=== PATIENT | male | born 1940 | race Caucasian/White ===

== ENCOUNTER 2017-06-04 00:07 | Inpatient (IN) | payer MEDICARE, OTHER ==
[2017-06-04 01:15] LABS: ADD MAN DIFF? NO
[2017-06-04 01:16] LABS: WHITE BLOOD COUNT 15.7 10^3/ul (4.8-10.8)
[2017-06-04 01:16] LABS: BASOPHILS % 0.2 % (0.0-2.0); EOSINOPHILS % 0.1 % (0.0-7.0); HEMATOCRIT 37.7 % (42.0-52.0); HEMOGLOBIN 12.3 g/dl (14.0-18.0); LYMPHOCYTES # 1.7 10^3/ul (0.8-2.9); LYMPHOCYTES % 10.5 % (15.0-51.0); MEAN CORPUSCULAR HEMOGLOBIN 29.4 pg (29.0-33.0); MEAN CORPUSCULAR HGB CONC 32.6 g/dl (32.0-37.0); MEAN CORPUSCULAR VOLUME 90.2 fl (82.0-101.0); MEAN PLATELET VOLUME 10.5 fl (7.4-10.4); MONOCYTE # 1.2 10^3/ul (0.3-0.9); MONOCYTES % 7.4 % (0.0-11.0); NEUTROPHIL # 12.7 10^3/ul (1.6-7.5); NEUTROPHILS % 81.4 % (39.0-77.0); PLATELET COUNT 235 10^3/UL (140-415); RED BLOOD COUNT 4.18 10^6/ul (4.70-6.10)
[2017-06-04 01:28] LABS: LACTIC ACID 1.6 mmol/L (0.5-2.0)
[2017-06-04 01:33] LABS: ALANINE AMINOTRANSFERASE 19 IU/L (13-69); ALBUMIN 4.4 g/dl (3.3-4.9); ALBUMIN/GLOBULIN RATIO 1.46; ALKALINE PHOSPHATASE 52 IU/L (42-121); ANION GAP 18 (8-16); ASPARTATE AMINO TRANSFERASE 17 IU/L (15-46); BILIRUBIN,INDIRECT 0.2 mg/dl (0-1.1); BILIRUBIN,TOTAL 0.2 mg/dl (0.2-1.3); BLOOD UREA NITROGEN 18 mg/dl (7-20); CALCIUM 8.8 mg/dl (8.4-10.2); CARBON DIOXIDE 27 mmol/L (21-31); CHLORIDE 100 mmol/L (97-110); CREATININE 0.85 mg/dl (0.61-1.24); GLUCOSE 88 mg/dl (70-220); POTASSIUM 3.8 mmol/L (3.5-5.1); SODIUM 141 mmol/L (135-144); TOTAL PROTEIN 7.4 g/dl (6.1-8.1)
[2017-06-04 01:37] LABS: INR 1.29; PROTIME 16.3 Sec (11.9-14.9); PT RATIO 1.3
[2017-06-04 01:38] LABS: PARTIAL THROMBOPLASTIN TIME 30.5 Sec (25.0-35.0)
[2017-06-04 01:52] LABS: AADO2 Arterial 145.9 mmHg (7.0-24.0); Allen Test ACCEPTAB; Arterial Blood Gas Oxygen Sat 97.6 mmHG (95.0-100.0); Arterial COHb 0.3 % (0.0-3.0); Arterial HCO3 25.3 mmol/L (22.0-26.0); Arterial MetHb 0.3 % (0.0-1.5); Arterial Total Hemglobin 13.7 g/dl (12.0-18.0); Arterial pCO2 35.4 mmhg (35-45); MODE MASK - BIPAP; Site Left Radial
[2017-06-04 01:59] LABS: TROPONIN-I < 0.012 ng/ml (0.00-0.12)
[2017-06-04] MEDS: ONDANSETRON 4 MG INJ IV (02:28)
[2017-06-04] MEDS: morphine 4 MG/ML VIAL IV (02:30)
[2017-06-04 02:57] LABS: ADD UMIC YES; UR ASCORBIC ACID NEGATIVE (NEGATIVE); UR BILIRUBIN (Dip) NEGATIVE (NEGATIVE); UR BLOOD (Dip) NEGATIVE (NEGATIVE); UR CLARITY CLEAR (CLEAR); UR COLOR YELLOW (YELLOW); UR GLUCOSE (Dip) NEGATIVE (NEGATIVE); UR KETONES (Dip) NEGATIVE (NEGATIVE); UR LEUKOCYTE ESTERASE (Dip) NEGATIVE Leu/ul (NEGATIVE); UR NITRITE (Dip) NEGATIVE (NEGATIVE); UR RBC 2 /HPF (0-5); UR SPECIFIC GRAVITY (Dip) 1.019 (1.003-1.030); UR TOTAL PROTEIN (Dip) 1+ mg/dl (NEGATIVE); UR UROBILINOGEN (Dip) 2+ mg/dL (NEGATIVE); UR WBC 2 /HPF (0-5)
[2017-06-04] MEDS: DEXAMETHASONE 10 MG/ML 1 ML INJ IV (03:45)
[2017-06-04] MEDS ORDERED: IPRATROPIUM (NEB) 0.5 MG/2.5 ML AMP NEB (06:00)
[2017-06-04] MEDS ORDERED: ACETAMINOPHEN 325 MG TAB PO (06:00)
[2017-06-04] MEDS ORDERED: NACL 0.9% 3 ML SYG IV (06:00)
[2017-06-04] MEDS ORDERED: LEVALBUTEROL (NEB) 0.63 MG/3 ML AMP HHN (06:00)
[2017-06-04] MEDS ORDERED: morphine 2 MG INJ IV (06:00)
[2017-06-04] MEDS: METHYLPREDNISOLONE 125 MG INJ IV ×3 (08:56→21:48)
[2017-06-04] MEDS: LEVOFLOXACIN 500MG/D5W (PMX) 100 ML IVPB (08:59)
[2017-06-04 09:01] LABS: LACTIC ACID 1.5 mmol/L (0.5-2.0)
[2017-06-04] MEDS: SALMETEROL/FLUTICASONE 250/50 INHA INH ×2 (09:59→21:47)
[2017-06-04] MEDS: DORZOLAMIDE/TIMOLOL 10 ML OPH BOTH EYES ×2 (10:00→21:47)
[2017-06-04] MEDS: TIOTROPIUM 18 MCG CAPSULE INHA DEV INH (10:02)
[2017-06-04] MEDS: DOCUSATE SODIUM 100 MG CAP PO (10:04)
[2017-06-04] MEDS: METHIMAZOLE 5 MG TAB PO (10:04)
[2017-06-04] MEDS: DILTIAZEM (CD) 240 MG CAP PO (10:06)
[2017-06-04] MEDS: APIXABAN 5 MG TABLET PO ×2 (10:06→21:48)
[2017-06-04] MEDS: ALBUTEROL HFA 8 GM INHALER INH ×4 (10:08→21:47)
[2017-06-04] MEDS: BICALUTAMIDE 50 MG TAB PO (11:25)
[2017-06-04 12:01] LABS: LACTIC ACID 3.4 mmol/L (0.5-2.0)
[2017-06-04] MEDS: DIGOXIN 0.25 MG TAB PO (13:07)
[2017-06-04] MEDS ORDERED: SOD CHLORIDE 0.9% 100 ML (13:18)
[2017-06-04] MEDS ORDERED: IOHEXOL 300MG/ML 150 ML BTL (13:18)
[2017-06-04] MEDS: SENNA TAB PO (21:47)
[2017-06-04] MEDS: ATORVASTATIN 20 MG TAB PO (21:48)
[2017-06-04] MEDS: SOD CHLORIDE 0.9% 250 ML IV (22:20)
[2017-06-04] MEDS ORDERED: SOD CHLORIDE 0.9% 250 ML IV (22:30)
[2017-06-04] MEDS: LATANOPROST 0.005% 2.5 ML OPH BOTH EYES (23:28)
[2017-06-05 01:03] LABS: LACTIC ACID 2.3 mmol/L (0.5-2.0)
[2017-06-05] MEDS: ALBUTEROL HFA 8 GM INHALER INH ×6 (03:42→21:54)
[2017-06-05] MEDS: METHYLPREDNISOLONE 125 MG INJ IV (06:01)
[2017-06-05] MEDS: LEVOFLOXACIN 500MG/D5W (PMX) 100 ML IVPB (08:10)
[2017-06-05] MEDS: DORZOLAMIDE/TIMOLOL 10 ML OPH BOTH EYES ×2 (08:39→21:00)
[2017-06-05] MEDS: SALMETEROL/FLUTICASONE 250/50 INHA INH ×2 (08:39→21:53)
[2017-06-05] MEDS: METHIMAZOLE 5 MG TAB PO (08:40)
[2017-06-05] MEDS: TIOTROPIUM 18 MCG CAPSULE INHA DEV INH (08:40)
[2017-06-05] MEDS: DILTIAZEM (CD) 240 MG CAP PO (08:40)
[2017-06-05] MEDS: BICALUTAMIDE 50 MG TAB PO (08:42)
[2017-06-05] MEDS: APIXABAN 5 MG TABLET PO ×2 (08:42→21:54)
[2017-06-05] MEDS: DOCUSATE SODIUM 100 MG CAP PO (08:42)
[2017-06-05 09:38] LABS: ADD MAN DIFF? NO
[2017-06-05 09:47] LABS: BASOPHILS % 0.1 % (0.0-2.0); HEMATOCRIT 37.1 % (42.0-52.0); HEMOGLOBIN 12.2 g/dl (14.0-18.0); LYMPHOCYTES # 0.7 10^3/ul (0.8-2.9); LYMPHOCYTES % 4.7 % (15.0-51.0); MEAN CORPUSCULAR HEMOGLOBIN 29.6 pg (29.0-33.0); MEAN CORPUSCULAR HGB CONC 32.9 g/dl (32.0-37.0); MEAN PLATELET VOLUME 10.2 fl (7.4-10.4); MONOCYTE # 0.2 10^3/ul (0.3-0.9); MONOCYTES % 1.4 % (0.0-11.0); NEUTROPHIL # 13.9 10^3/ul (1.6-7.5); NEUTROPHILS % 93.1 % (39.0-77.0); PLATELET COUNT 259 10^3/UL (140-415); RED BLOOD COUNT 4.12 10^6/ul (4.70-6.10)
[2017-06-05 09:47] LABS: WHITE BLOOD COUNT 14.9 10^3/ul (4.8-10.8)
[2017-06-05 10:10] LABS: LACTIC ACID 2.4 mmol/L (0.5-2.0)
[2017-06-05 10:12] LABS: ALANINE AMINOTRANSFERASE 25 IU/L (13-69); ALBUMIN 3.4 g/dl (3.3-4.9); ALBUMIN/GLOBULIN RATIO 1.21; ALKALINE PHOSPHATASE 45 IU/L (42-121); ANION GAP 16 (8-16); ASPARTATE AMINO TRANSFERASE 13 IU/L (15-46); BILIRUBIN,INDIRECT 0.1 mg/dl (0-1.1); BILIRUBIN,TOTAL 0.1 mg/dl (0.2-1.3); BLOOD UREA NITROGEN 23 mg/dl (7-20); CALCIUM 8.5 mg/dl (8.4-10.2); CARBON DIOXIDE 29 mmol/L (21-31); CHLORIDE 104 mmol/L (97-110); CREATININE 0.89 mg/dl (0.61-1.24); GLUCOSE 157 mg/dl (70-220); SODIUM 145 mmol/L (135-144); TOTAL PROTEIN 6.2 g/dl (6.1-8.1)
[2017-06-05] MEDS ORDERED: GUAIFENESIN/DM 5ML CUP PO (12:00)
[2017-06-05] MEDS: DIGOXIN 0.25 MG TAB PO (12:58)
[2017-06-05] MEDS: LATANOPROST 0.005% 2.5 ML OPH BOTH EYES (21:00)
[2017-06-05] MEDS: SENNA TAB PO (21:54)
[2017-06-05] MEDS: ATORVASTATIN 20 MG TAB PO (21:54)
[2017-06-05] MEDS: METHYLPREDNISOLONE 40 MG INJ IV (21:54)
[2017-06-06] MEDS: ALBUTEROL HFA 8 GM INHALER INH ×5 (01:00→17:36)
[2017-06-06 08:56] LABS: ADD MAN DIFF? NO
[2017-06-06] MEDS: DORZOLAMIDE/TIMOLOL 10 ML OPH BOTH EYES (09:00)
[2017-06-06 09:01] LABS: WHITE BLOOD COUNT 16.3 10^3/ul (4.8-10.8)
[2017-06-06 09:01] LABS: BASOPHILS % 0.1 % (0.0-2.0); HEMATOCRIT 37.5 % (42.0-52.0); HEMOGLOBIN 12.4 g/dl (14.0-18.0); LYMPHOCYTES # 0.6 10^3/ul (0.8-2.9); LYMPHOCYTES % 3.7 % (15.0-51.0); MEAN CORPUSCULAR HEMOGLOBIN 29.7 pg (29.0-33.0); MEAN CORPUSCULAR HGB CONC 33.1 g/dl (32.0-37.0); MEAN CORPUSCULAR VOLUME 89.9 fl (82.0-101.0); MEAN PLATELET VOLUME 9.9 fl (7.4-10.4); MONOCYTE # 0.7 10^3/ul (0.3-0.9); MONOCYTES % 4.1 % (0.0-11.0); NEUTROPHIL # 14.8 10^3/ul (1.6-7.5); NEUTROPHILS % 91.2 % (39.0-77.0); PLATELET COUNT 306 10^3/UL (140-415); RED BLOOD COUNT 4.17 10^6/ul (4.70-6.10); RED CELL DISTRIBUTION WIDTH 13.7 % (11.5-14.5)
[2017-06-06 09:16] LABS: ANION GAP 18 (8-16); BLOOD UREA NITROGEN 22 mg/dl (7-20); CALCIUM 8.6 mg/dl (8.4-10.2); CARBON DIOXIDE 27 mmol/L (21-31); CHLORIDE 105 mmol/L (97-110); CREATININE 0.87 mg/dl (0.61-1.24); GLUCOSE 115 mg/dl (70-220); MAGNESIUM 2.1 mg/dl (1.7-2.5); POTASSIUM 4.3 mmol/L (3.5-5.1); SODIUM 146 mmol/L (135-144)
[2017-06-06] MEDS: DOCUSATE SODIUM 100 MG CAP PO (09:40)
[2017-06-06] MEDS: APIXABAN 5 MG TABLET PO (09:40)
[2017-06-06] MEDS: METHIMAZOLE 5 MG TAB PO (09:41)
[2017-06-06] MEDS: METHYLPREDNISOLONE 40 MG INJ IV (09:43)
[2017-06-06] MEDS: LEVOFLOXACIN 500MG/D5W (PMX) 100 ML IVPB (09:43)
[2017-06-06] MEDS: DILTIAZEM (CD) 240 MG CAP PO (09:43)
[2017-06-06] MEDS: SALMETEROL/FLUTICASONE 250/50 INHA INH (09:44)
[2017-06-06] MEDS: BICALUTAMIDE 50 MG TAB PO (09:46)
[2017-06-06] MEDS: TIOTROPIUM 18 MCG CAPSULE INHA DEV INH (09:47)
[2017-06-06] MEDS: DIGOXIN 0.25 MG TAB PO (12:34)
[2017-06-06] MEDS: predniSONE 10 MG TAB PO (12:34)
== END 2017-06-06 18:55 | disposition home or self-care (01) | DRG 871 ==
LOC: E/R 00:07 → MS4 03:28
DX: A41.9 Sepsis, unspecified organism (principal); J18.9 Pneumonia, unspecified organism; J44.1 Chronic obstructive pulmonary disease with (acute) exacerbation; J44.0 Chronic obstructive pulmonary disease with (acute) lower respiratory infection; C79.51 Secondary malignant neoplasm of bone; I48.0 Paroxysmal atrial fibrillation; Z99.81 Dependence on supplemental oxygen; E05.90 Thyrotoxicosis, unspecified without thyrotoxic crisis or storm; J20.9 Acute bronchitis, unspecified; I10 Essential (primary) hypertension; E78.5 Hyperlipidemia, unspecified; Z79.02 Long term (current) use of antithrombotics/antiplatelets; Z87.891 Personal history of nicotine dependence; Z85.46 Personal history of malignant neoplasm of prostate
CPT/HCPCS: 36600; 71045; 71260; 80048; 80053; 81001; 82803; 83605; 83735; 84484; 85025; 85610; 85730; 87040; 87086; 93005; 94660

== ENCOUNTER 2017-06-08 14:01 | Inpatient (IN) | payer MEDICARE, OTHER ==
[2017-06-08] MEDS: METHYLPREDNISOLONE 125 MG INJ IV (14:21)
[2017-06-08 14:35] LABS: ADD MAN DIFF? NO
[2017-06-08] MEDS: SODIUM CHLORIDE 0.9% 1L BAG IV* (14:37)
[2017-06-08 14:38] LABS: ABNORMAL IP MESSAGE 1; BASOPHILS % 0.1 % (0.0-2.0); EOSINOPHILS % 0.2 % (0.0-7.0); HEMATOCRIT 39.3 % (42.0-52.0); HEMOGLOBIN 12.8 g/dl (14.0-18.0); LYMPHOCYTES # 0.9 10^3/ul (0.8-2.9); LYMPHOCYTES % 4.9 % (15.0-51.0); MEAN CORPUSCULAR HEMOGLOBIN 29.3 pg (29.0-33.0); MEAN CORPUSCULAR HGB CONC 32.6 g/dl (32.0-37.0); MEAN CORPUSCULAR VOLUME 89.9 fl (82.0-101.0); MEAN PLATELET VOLUME 9.7 fl (7.4-10.4); MONOCYTE # 1.9 10^3/ul (0.3-0.9); MONOCYTES % 10.7 % (0.0-11.0); NEUTROPHIL # 14.8 10^3/ul (1.6-7.5); NEUTROPHILS % 82.8 % (39.0-77.0); PLATELET COUNT 354 10^3/UL (140-415); POSITIVE DIFF @See below; RED BLOOD COUNT 4.37 10^6/ul (4.70-6.10)
[2017-06-08 14:38] LABS: WHITE BLOOD COUNT 17.8 10^3/ul (4.8-10.8)
[2017-06-08 15:00] LABS: ALANINE AMINOTRANSFERASE 19 IU/L (13-69); ALBUMIN 4.1 g/dl (3.3-4.9); ALBUMIN/GLOBULIN RATIO 1.36; ALKALINE PHOSPHATASE 46 IU/L (42-121); ANION GAP 17 (8-16); ASPARTATE AMINO TRANSFERASE 16 IU/L (15-46); BILIRUBIN,INDIRECT 0.1 mg/dl (0-1.1); BILIRUBIN,TOTAL 0.1 mg/dl (0.2-1.3); BLOOD UREA NITROGEN 17 mg/dl (7-20); CALCIUM 8.6 mg/dl (8.4-10.2); CARBON DIOXIDE 27 mmol/L (21-31); CHLORIDE 103 mmol/L (97-110); CREATINE KINASE 36 IU/L (23-200); CREATININE 0.81 mg/dl (0.61-1.24); GLUCOSE 121 mg/dl (70-220); INR 1.16; POTASSIUM 3.4 mmol/L (3.5-5.1); PT RATIO 1.2; SODIUM 144 mmol/L (135-144); TOTAL PROTEIN 7.1 g/dl (6.1-8.1)
[2017-06-08] MEDS: ALBUTEROL 0.5% (NEB) 2.5 MG/0.5 ML AMP INH (15:00)
[2017-06-08] MEDS: IPRATROPIUM (NEB) 0.5 MG/2.5 ML AMP INH (15:00)
[2017-06-08 15:01] LABS: PARTIAL THROMBOPLASTIN TIME 26.6 Sec (25.0-35.0)
[2017-06-08 15:06] LABS: B-TYPE NATRIURETIC PEPTIDE 667 PG/ML (0-450); CK INDEX 3.1
[2017-06-08 15:09] LABS: LACTIC ACID 3.8 mmol/L (0.5-2.0)
[2017-06-08 15:22] LABS: TROPONIN-I < 0.012 ng/ml (0.00-0.12)
[2017-06-08] MEDS: PIPER-TAZO 3.375 GM IV (PMX) 100 ML IVPB (15:26)
[2017-06-08] MEDS: VANCOMYCIN 1 GM (PMX) 250 ML IVPB (15:56)
[2017-06-08 16:16] LABS: ADD UMIC NO; UR ASCORBIC ACID NEGATIVE (NEGATIVE); UR BILIRUBIN (Dip) NEGATIVE (NEGATIVE); UR BLOOD (Dip) NEGATIVE (NEGATIVE); UR CLARITY CLEAR (CLEAR); UR COLOR STRAW (YELLOW); UR GLUCOSE (Dip) NEGATIVE (NEGATIVE); UR KETONES (Dip) NEGATIVE (NEGATIVE); UR LEUKOCYTE ESTERASE (Dip) NEGATIVE Leu/ul (NEGATIVE); UR NITRITE (Dip) NEGATIVE (NEGATIVE); UR SPECIFIC GRAVITY (Dip) 1.003 (1.003-1.030); UR TOTAL PROTEIN (Dip) NEGATIVE (NEGATIVE); UR UROBILINOGEN (Dip) NEGATIVE (NEGATIVE)
[2017-06-08 17:14] LABS: AADO2 Arterial 167.2 mmHg (7.0-24.0); Allen Test ACCEPTAB; Arterial Base Excess 1.7 mmol/L (-3.0-3); Arterial Blood Gas Oxygen Sat 98.8 mmHG (95.0-100.0); Arterial COHb 0.3 % (0.0-3.0); Arterial Fraction of Oxyhgb 98.1 % (93.0-99.0); Arterial HCO3 24.6 mmol/L (22.0-26.0); Arterial MetHb 0.4 % (0.0-1.5); Arterial Total Hemglobin 12.6 g/dl (12.0-18.0); Blood Gas IEPAP 15/5; MODE MASK - BIPAP; Site Right Radial
[2017-06-08 17:58] LABS: LACTIC ACID 1.7 mmol/L (0.5-2.0)
[2017-06-08] MEDS ORDERED: ACETAMINOPHEN 325 MG TAB PO (19:00)
[2017-06-08] MEDS ORDERED: ONDANSETRON 4 MG INJ IV (19:00)
[2017-06-08 19:43] LABS: LACTIC ACID 2.2 mmol/L (0.5-2.0)
[2017-06-09] MEDS ORDERED: morphine 2 MG INJ IV (04:00)
[2017-06-09] MEDS ORDERED: ALBUTEROL/IPRATROPIUM (NEB) 3 ML AMP HHN (04:00)
[2017-06-09] MEDS ORDERED: NACL 0.9% 3 ML SYG IV (04:00)
[2017-06-09] MEDS: ALBUTEROL HFA 8 GM INHALER INH ×5 (05:12→20:32)
[2017-06-09 05:59] LABS: ADD MAN DIFF? NO
[2017-06-09 06:01] LABS: ABNORMAL IP MESSAGE 1; BASOPHILS % 0.2 % (0.0-2.0); HEMATOCRIT 35.8 % (42.0-52.0); HEMOGLOBIN 11.7 g/dl (14.0-18.0); LYMPHOCYTES # 0.4 10^3/ul (0.8-2.9); LYMPHOCYTES % 3.6 % (15.0-51.0); MEAN CORPUSCULAR HEMOGLOBIN 29.5 pg (29.0-33.0); MEAN CORPUSCULAR HGB CONC 32.7 g/dl (32.0-37.0); MEAN CORPUSCULAR VOLUME 90.2 fl (82.0-101.0); MEAN PLATELET VOLUME 9.4 fl (7.4-10.4); MONOCYTE # 0.3 10^3/ul (0.3-0.9); MONOCYTES % 3.1 % (0.0-11.0); NEUTROPHIL # 9.7 10^3/ul (1.6-7.5); NEUTROPHILS % 91.5 % (39.0-77.0); PLATELET COUNT 282 10^3/UL (140-415); POSITIVE DIFF @See below; RED BLOOD COUNT 3.97 10^6/ul (4.70-6.10); RED CELL DISTRIBUTION WIDTH 13.9 % (11.5-14.5)
[2017-06-09 06:01] LABS: WHITE BLOOD COUNT 10.6 10^3/ul (4.8-10.8)
[2017-06-09 06:30] LABS: ALANINE AMINOTRANSFERASE 18 IU/L (13-69); ALBUMIN 3.4 g/dl (3.3-4.9); ALKALINE PHOSPHATASE 47 IU/L (42-121); ANION GAP 17 (8-16); ASPARTATE AMINO TRANSFERASE 14 IU/L (15-46); BILIRUBIN,INDIRECT 0.2 mg/dl (0-1.1); BILIRUBIN,TOTAL 0.2 mg/dl (0.2-1.3); BLOOD UREA NITROGEN 15 mg/dl (7-20); CALCIUM 7.8 mg/dl (8.4-10.2); CARBON DIOXIDE 27 mmol/L (21-31); CHLORIDE 107 mmol/L (97-110); GLUCOSE 134 mg/dl (70-220); SODIUM 147 mmol/L (135-144); TOTAL PROTEIN 6.5 g/dl (6.1-8.1)
[2017-06-09 06:31] LABS: ALBUMIN/GLOBULIN RATIO 1.09
[2017-06-09] MEDS ORDERED: VANCOMYCIN IV PER PHARMACY XX (08:00)
[2017-06-09] MEDS: DORZOLAMIDE/TIMOLOL 10 ML OPH BOTH EYES ×2 (09:00→20:30)
[2017-06-09] MEDS: TIOTROPIUM 18 MCG CAPSULE INHA DEV INH (10:26)
[2017-06-09] MEDS: SALMETEROL/FLUTICASONE 250/50 INHA INH ×2 (10:26→20:31)
[2017-06-09] MEDS: DILTIAZEM (CD) 240 MG CAP PO (10:28)
[2017-06-09] MEDS: APIXABAN 5 MG TABLET PO ×2 (10:31→20:33)
[2017-06-09] MEDS: LEVOFLOXACIN 500 MG TAB PO (10:32)
[2017-06-09] MEDS: METHIMAZOLE 5 MG TAB PO (10:34)
[2017-06-09] MEDS: VANCOMYCIN 1.5 GM in SOD CHLORIDE 0.9% 250 ML IVPB (10:35)
[2017-06-09] MEDS: DOCUSATE SODIUM 100 MG CAP PO (10:44)
[2017-06-09] MEDS: METHYLPREDNISOLONE 125 MG INJ IV ×2 (10:45→20:35)
[2017-06-09] MEDS: BICALUTAMIDE 50 MG TAB PO (10:51)
[2017-06-09] MEDS ORDERED: INFLUENZA VIRUS VACCINE 0.5 ML SYG IM* (11:30)
[2017-06-09] MEDS: CEFEPIME 1GM/50 ML (PMX) 50 ML IVPB ×2 (11:36→21:43)
[2017-06-09] MEDS: ALBUTEROL/IPRATROPIUM (NEB) 3 ML AMP HHN ×2 (14:56→19:34)
[2017-06-09] MEDS ORDERED: SOD CHLORIDE 0.9% 1,000 ML IV (16:00)
[2017-06-09] MEDS: SOD CHLORIDE 0.45% 1,000 ML IV (16:02)
[2017-06-09 17:19] LABS: MAGNESIUM 2.3 mg/dl (1.7-2.5)
[2017-06-09] MEDS: MAGNESIUM SULFATE 4 GM/100 ML 100 ML IVPB (17:22)
[2017-06-09 17:27] LABS: LACTIC ACID 4.5 mmol/L (0.5-2.0)
[2017-06-09 17:28] LABS: B-TYPE NATRIURETIC PEPTIDE 967 PG/ML (0-450)
[2017-06-09 17:34] LABS: TROPONIN-I < 0.012 ng/ml (0.00-0.12)
[2017-06-09 17:37] LABS: T4 (THYROXINE) 5.6 ug/dl (5.5-11.0)
[2017-06-09 17:49] LABS: THYROID STIMULATING HORMONE 0.117 MIU/L (0.465-4.680)
[2017-06-09 18:06] LABS: ERYTHROCYTE SEDIMENTATION RATE 35 mm/Hr (0-20)
[2017-06-09] MEDS: LATANOPROST 0.005% 2.5 ML OPH BOTH EYES (20:30)
[2017-06-09] MEDS: MONTELUKAST 10 MG TAB PO (20:33)
[2017-06-09] MEDS: ATORVASTATIN 20 MG TAB PO (20:33)
[2017-06-09] MEDS: METOPROLOL 25 MG TAB PO (20:34)
[2017-06-09] MEDS: SENNA TAB PO (20:35)
[2017-06-10] MEDS: ALBUTEROL HFA 8 GM INHALER INH ×7 (01:00→21:13)
[2017-06-10 01:12] LABS: TROPONIN-I < 0.012 ng/ml (0.00-0.12)
[2017-06-10] MEDS: ALBUTEROL/IPRATROPIUM (NEB) 3 ML AMP HHN ×4 (01:22→20:30)
[2017-06-10] MEDS: VANCOMYCIN 1.25 GM in SOD CHLORIDE 0.9% 250 ML IVPB ×3 (01:50→22:37)
[2017-06-10] MEDS: SOD CHLORIDE 0.45% 1,000 ML IV (06:03)
[2017-06-10 06:24] LABS: ADD MAN DIFF? NO
[2017-06-10 06:41] LABS: WHITE BLOOD COUNT 13.6 10^3/ul (4.8-10.8)
[2017-06-10 06:41] LABS: ABNORMAL IP MESSAGE 1; BASOPHILS % 0.1 % (0.0-2.0); HEMATOCRIT 34.3 % (42.0-52.0); HEMOGLOBIN 11.4 g/dl (14.0-18.0); LYMPHOCYTES # 0.4 10^3/ul (0.8-2.9); LYMPHOCYTES % 3.2 % (15.0-51.0); MEAN CORPUSCULAR HEMOGLOBIN 29.7 pg (29.0-33.0); MEAN CORPUSCULAR HGB CONC 33.2 g/dl (32.0-37.0); MEAN CORPUSCULAR VOLUME 89.3 fl (82.0-101.0); MEAN PLATELET VOLUME 9.4 fl (7.4-10.4); MONOCYTE # 0.6 10^3/ul (0.3-0.9); MONOCYTES % 4.2 % (0.0-11.0); NEUTROPHIL # 12.3 10^3/ul (1.6-7.5); NEUTROPHILS % 90.5 % (39.0-77.0); PLATELET COUNT 303 10^3/UL (140-415); POSITIVE DIFF @See below; RED BLOOD COUNT 3.84 10^6/ul (4.70-6.10); RED CELL DISTRIBUTION WIDTH 14.2 % (11.5-14.5)
[2017-06-10 06:54] LABS: ANION GAP 15 (8-16); BLOOD UREA NITROGEN 17 mg/dl (7-20); CALCIUM 7.8 mg/dl (8.4-10.2); CARBON DIOXIDE 28 mmol/L (21-31); CHLORIDE 107 mmol/L (97-110); CREATININE 0.75 mg/dl (0.61-1.24); GLUCOSE 128 mg/dl (70-220); MAGNESIUM 2.5 mg/dl (1.7-2.5); PHOSPHORUS 2.2 mg/dl (2.5-4.9); POTASSIUM 3.8 mmol/L (3.5-5.1); SODIUM 146 mmol/L (135-144)
[2017-06-10 07:02] LABS: TROPONIN-I < 0.012 ng/ml (0.00-0.12)
[2017-06-10 07:08] LABS: LACTIC ACID 2.6 mmol/L (0.5-2.0)
[2017-06-10] MEDS: LEVOFLOXACIN 500 MG TAB PO (08:27)
[2017-06-10] MEDS: SALMETEROL/FLUTICASONE 250/50 INHA INH ×2 (08:27→21:12)
[2017-06-10] MEDS: APIXABAN 5 MG TABLET PO ×2 (08:27→21:14)
[2017-06-10] MEDS: DOCUSATE SODIUM 100 MG CAP PO (08:27)
[2017-06-10] MEDS: TIOTROPIUM 18 MCG CAPSULE INHA DEV INH (08:27)
[2017-06-10] MEDS: METOPROLOL 25 MG TAB PO ×2 (08:28→21:16)
[2017-06-10] MEDS: METHYLPREDNISOLONE 125 MG INJ IV ×2 (08:28→21:13)
[2017-06-10] MEDS: DORZOLAMIDE/TIMOLOL 10 ML OPH BOTH EYES ×2 (09:00→21:00)
[2017-06-10] MEDS: CEFEPIME 1GM/50 ML (PMX) 50 ML IVPB ×2 (09:10→21:14)
[2017-06-10] MEDS: DILTIAZEM (CD) 240 MG CAP PO (09:13)
[2017-06-10] MEDS: LACTATED RINGER'S 1,000 ML IV ×2 (09:59→22:31)
[2017-06-10] MEDS: METHIMAZOLE 5 MG TAB PO (10:39)
[2017-06-10] MEDS: BICALUTAMIDE 50 MG TAB PO (10:40)
[2017-06-10 13:09] LABS: TROPONIN-I < 0.012 ng/ml (0.00-0.12)
[2017-06-10] MEDS: ONDANSETRON 4 MG INJ IV (17:41)
[2017-06-10 19:48] LABS: TROPONIN-I < 0.012 ng/ml (0.00-0.12)
[2017-06-10] MEDS: LATANOPROST 0.005% 2.5 ML OPH BOTH EYES (21:00)
[2017-06-10] MEDS: ATORVASTATIN 20 MG TAB PO (21:14)
[2017-06-10 22:30] LABS: VANCOMYCIN,TROUGH 12.7 ug/ml (10.0-20.0)
[2017-06-10] MEDS: MONTELUKAST 10 MG TAB PO (22:30)
[2017-06-10] MEDS: SENNA TAB PO (22:30)
[2017-06-10] MEDS: BIMATOPROST BOTH EYES (22:38)
[2017-06-10] MEDS: [UNRECOGNIZED DRUG - OTHER] BOTH EYES (22:38)
[2017-06-11 01:25] LABS: TROPONIN-I < 0.012 ng/ml (0.00-0.12)
[2017-06-11] MEDS: ALBUTEROL HFA 8 GM INHALER INH ×6 (01:36→21:02)
[2017-06-11] MEDS: LACTATED RINGER'S 1,000 ML IV ×2 (03:15→23:02)
[2017-06-11] MEDS: ALBUTEROL/IPRATROPIUM (NEB) 3 ML AMP HHN ×2 (03:54→07:37)
[2017-06-11 06:53] LABS: LACTIC ACID 2.6 mmol/L (0.5-2.0)
[2017-06-11] MEDS: LEVOFLOXACIN 500 MG TAB PO (08:42)
[2017-06-11] MEDS: DILTIAZEM (CD) 240 MG CAP PO (08:42)
[2017-06-11] MEDS: DOCUSATE SODIUM 100 MG CAP PO (08:42)
[2017-06-11] MEDS: APIXABAN 5 MG TABLET PO ×2 (08:43→21:02)
[2017-06-11] MEDS: METOPROLOL 25 MG TAB PO ×2 (08:43→21:03)
[2017-06-11] MEDS: METHYLPREDNISOLONE 125 MG INJ IV (08:44)
[2017-06-11] MEDS: CEFEPIME 1GM/50 ML (PMX) 50 ML IVPB ×2 (08:44→21:02)
[2017-06-11] MEDS: SALMETEROL/FLUTICASONE 250/50 INHA INH ×2 (08:44→21:01)
[2017-06-11] MEDS: TIOTROPIUM 18 MCG CAPSULE INHA DEV INH (08:45)
[2017-06-11] MEDS: BICALUTAMIDE 50 MG TAB PO (09:00)
[2017-06-11 09:02] LABS: AADO2 Arterial 64.1 mmHg (7.0-24.0); Allen Test ACCEPTAB; Arterial Base Excess 0.5 mmol/L (-3.0-3); Arterial Blood Gas Oxygen Sat 96.1 mmHG (95.0-100.0); Arterial COHb 0.3 % (0.0-3.0); Arterial Fraction of Oxyhgb 95.4 % (93.0-99.0); Arterial HCO3 24.3 mmol/L (22.0-26.0); Arterial MetHb 0.4 % (0.0-1.5); Arterial Total Hemglobin 12.3 g/dl (12.0-18.0); Arterial pCO2 36.3 mmhg (35-45); MODE NASAL CANNULA; Site Right Radial
[2017-06-11] MEDS: VANCOMYCIN 1.25 GM in SOD CHLORIDE 0.9% 250 ML IVPB ×2 (10:00→12:45)
[2017-06-11] MEDS: METHIMAZOLE 5 MG TAB PO (12:58)
[2017-06-11] MEDS: [UNRECOGNIZED DRUG - OTHER] BOTH EYES (21:00)
[2017-06-11] MEDS: LATANOPROST 0.005% 2.5 ML OPH BOTH EYES (21:00)
[2017-06-11] MEDS: BIMATOPROST BOTH EYES (21:00)
[2017-06-11] MEDS: ATORVASTATIN 20 MG TAB PO (21:02)
[2017-06-11] MEDS: METHYLPREDNISOLONE 40 MG INJ IV (21:05)
[2017-06-11] MEDS: MONTELUKAST 10 MG TAB PO (22:16)
[2017-06-11] MEDS: SENNA TAB PO (22:16)
[2017-06-12] MEDS: ALBUTEROL HFA 8 GM INHALER INH ×6 (01:15→21:45)
[2017-06-12] MEDS: ALBUTEROL/IPRATROPIUM (NEB) 3 ML AMP HHN (03:36)
[2017-06-12 06:03] LABS: ADD MAN DIFF? NO
[2017-06-12 06:08] LABS: ABNORMAL IP MESSAGE 1; BASOPHILS % 0.1 % (0.0-2.0); HEMATOCRIT 33.2 % (42.0-52.0); HEMOGLOBIN 10.9 g/dl (14.0-18.0); LYMPHOCYTES # 0.5 10^3/ul (0.8-2.9); LYMPHOCYTES % 4.6 % (15.0-51.0); MEAN CORPUSCULAR HEMOGLOBIN 29.5 pg (29.0-33.0); MEAN CORPUSCULAR HGB CONC 32.8 g/dl (32.0-37.0); MEAN CORPUSCULAR VOLUME 89.7 fl (82.0-101.0); MEAN PLATELET VOLUME 9.6 fl (7.4-10.4); MONOCYTE # 0.4 10^3/ul (0.3-0.9); MONOCYTES % 3.2 % (0.0-11.0); NEUTROPHIL # 9.3 10^3/ul (1.6-7.5); PLATELET COUNT 292 10^3/UL (140-415); POSITIVE DIFF @See below; RED CELL DISTRIBUTION WIDTH 14.2 % (11.5-14.5)
[2017-06-12 06:28] LABS: ANION GAP 12 (8-16); BLOOD UREA NITROGEN 22 mg/dl (7-20); CALCIUM 7.9 mg/dl (8.4-10.2); CARBON DIOXIDE 32 mmol/L (21-31); CHLORIDE 105 mmol/L (97-110); CREATININE 0.88 mg/dl (0.61-1.24); GLUCOSE 110 mg/dl (70-220); POTASSIUM 3.8 mmol/L (3.5-5.1); SODIUM 145 mmol/L (135-144)
[2017-06-12] MEDS: SALMETEROL/FLUTICASONE 250/50 INHA INH ×2 (08:36→21:40)
[2017-06-12] MEDS: TIOTROPIUM 18 MCG CAPSULE INHA DEV INH (08:36)
[2017-06-12] MEDS: DOCUSATE SODIUM 100 MG CAP PO (08:37)
[2017-06-12] MEDS: APIXABAN 5 MG TABLET PO ×2 (08:37→21:41)
[2017-06-12] MEDS: METHYLPREDNISOLONE 40 MG INJ IV ×2 (08:37→21:41)
[2017-06-12] MEDS: METOPROLOL 25 MG TAB PO ×2 (08:38→21:42)
[2017-06-12] MEDS: BICALUTAMIDE 50 MG TAB PO (08:39)
[2017-06-12] MEDS: CEFEPIME 1GM/50 ML (PMX) 50 ML IVPB ×2 (11:08→21:40)
[2017-06-12] MEDS: METHIMAZOLE 5 MG TAB PO (11:08)
[2017-06-12] MEDS: DILTIAZEM (CD) 240 MG CAP PO (11:10)
[2017-06-12] MEDS: LACTATED RINGER'S 1,000 ML IV ×2 (11:30→22:27)
[2017-06-12] MEDS: FLUCONAZOLE 200 MG TAB PO (15:37)
[2017-06-12] MEDS: LATANOPROST 0.005% 2.5 ML OPH BOTH EYES (21:00)
[2017-06-12] MEDS: ATORVASTATIN 20 MG TAB PO (21:41)
[2017-06-12] MEDS: [UNRECOGNIZED DRUG - OTHER] BOTH EYES (21:45)
[2017-06-12] MEDS: BIMATOPROST BOTH EYES (21:45)
[2017-06-12] MEDS: SENNA TAB PO (21:48)
[2017-06-12] MEDS: MONTELUKAST 10 MG TAB PO (21:48)
[2017-06-13] MEDS: ALBUTEROL HFA 8 GM INHALER INH ×6 (01:00→21:03)
[2017-06-13 05:53] LABS: ADD MAN DIFF? NO
[2017-06-13 05:56] LABS: WHITE BLOOD COUNT 13.1 10^3/ul (4.8-10.8)
[2017-06-13 05:56] LABS: ABNORMAL IP MESSAGE 1; BASOPHILS % 0.2 % (0.0-2.0); HEMOGLOBIN 11.1 g/dl (14.0-18.0); LYMPHOCYTES # 0.5 10^3/ul (0.8-2.9); MEAN CORPUSCULAR HEMOGLOBIN 29.9 pg (29.0-33.0); MEAN CORPUSCULAR HGB CONC 33.6 g/dl (32.0-37.0); MEAN CORPUSCULAR VOLUME 88.9 fl (82.0-101.0); MEAN PLATELET VOLUME 9.6 fl (7.4-10.4); MONOCYTE # 0.6 10^3/ul (0.3-0.9); MONOCYTES % 4.3 % (0.0-11.0); NEUTROPHILS % 83.7 % (39.0-77.0); PLATELET COUNT 275 10^3/UL (140-415); POSITIVE DIFF @See below; RED BLOOD COUNT 3.71 10^6/ul (4.70-6.10); RED CELL DISTRIBUTION WIDTH 14.2 % (11.5-14.5)
[2017-06-13 06:50] LABS: ANION GAP 13 (8-16); BLOOD UREA NITROGEN 21 mg/dl (7-20); CALCIUM 7.7 mg/dl (8.4-10.2); CARBON DIOXIDE 32 mmol/L (21-31); CHLORIDE 104 mmol/L (97-110); CREATININE 0.75 mg/dl (0.61-1.24); GLUCOSE 123 mg/dl (70-220); MAGNESIUM 2.1 mg/dl (1.7-2.5); POTASSIUM 3.5 mmol/L (3.5-5.1); SODIUM 145 mmol/L (135-144)
[2017-06-13 07:44] LABS: ANISOCYTOSIS 1+ (0-0); LYMPHOCYTES #M 0.1 10^3/ul (0.8-2.9); LYMPHOCYTES % (M) 1 % (15-51); METAMYELOCYTES #M 0.1 10^3/ul (0.0-0.0); METAMYELOCYTES %M 1 % (0-0); MICROCYTOSIS 1+ (0-0); MONOCYTES % (M) 8 % (0-11); MYELOCYTES #M 0.1 10^3/ul (0.0-0.0); MYELOCYTES % (M) 1 % (0-0); PLATELET ESTIMATE NORMAL; POIKILOCYTOSIS 1+ (0-0); SEGMENTED NEUTROPHILS (M) % 89 % (39-77); SMUDGE%M 1 % (0-0)
[2017-06-13] MEDS: TIOTROPIUM 18 MCG CAPSULE INHA DEV INH (09:01)
[2017-06-13] MEDS: SALMETEROL/FLUTICASONE 250/50 INHA INH ×2 (09:01→20:51)
[2017-06-13] MEDS: METOPROLOL 25 MG TAB PO ×2 (09:02→20:53)
[2017-06-13] MEDS: DOCUSATE SODIUM 100 MG CAP PO (09:03)
[2017-06-13] MEDS: METHYLPREDNISOLONE 40 MG INJ IV ×2 (09:03→21:03)
[2017-06-13] MEDS: CEFEPIME 1GM/50 ML (PMX) 50 ML IVPB (09:03)
[2017-06-13] MEDS: FLUCONAZOLE 200 MG TAB PO (09:03)
[2017-06-13] MEDS: APIXABAN 5 MG TABLET PO ×2 (09:03→20:52)
[2017-06-13] MEDS: BICALUTAMIDE 50 MG TAB PO (09:06)
[2017-06-13] MEDS: DILTIAZEM (CD) 240 MG CAP PO (09:26)
[2017-06-13] MEDS: METHIMAZOLE 5 MG TAB PO (10:48)
[2017-06-13] MEDS: LACTATED RINGER'S 1,000 ML IV (11:30)
[2017-06-13 13:48] LABS: LACTIC ACID 3.4 mmol/L (0.5-2.0)
[2017-06-13] MEDS: [UNRECOGNIZED DRUG - OTHER] BOTH EYES (20:51)
[2017-06-13] MEDS: BIMATOPROST BOTH EYES (20:51)
[2017-06-13] MEDS: ATORVASTATIN 20 MG TAB PO (20:52)
[2017-06-13] MEDS: SENNA TAB PO (20:53)
[2017-06-13] MEDS: MONTELUKAST 10 MG TAB PO (20:53)
[2017-06-13] MEDS: LATANOPROST 0.005% 2.5 ML OPH BOTH EYES (21:00)
[2017-06-14] MEDS: ALBUTEROL HFA 8 GM INHALER INH ×2 (00:15→05:14)
[2017-06-14] MEDS: LACTATED RINGER'S 1,000 ML IV ×2 (01:25→15:43)
[2017-06-14 05:19] LABS: ADD MAN DIFF? NO
[2017-06-14 05:23] LABS: WHITE BLOOD COUNT 16.4 10^3/ul (4.8-10.8)
[2017-06-14 05:23] LABS: ABNORMAL IP MESSAGE 1; BASOPHILS % 0.2 % (0.0-2.0); HEMATOCRIT 34.3 % (42.0-52.0); HEMOGLOBIN 11.1 g/dl (14.0-18.0); LYMPHOCYTES # 0.6 10^3/ul (0.8-2.9); LYMPHOCYTES % 3.7 % (15.0-51.0); MEAN CORPUSCULAR HEMOGLOBIN 29.1 pg (29.0-33.0); MEAN CORPUSCULAR HGB CONC 32.4 g/dl (32.0-37.0); MEAN PLATELET VOLUME 9.4 fl (7.4-10.4); MONOCYTE # 0.6 10^3/ul (0.3-0.9); MONOCYTES % 3.9 % (0.0-11.0); NEUTROPHIL # 13.9 10^3/ul (1.6-7.5); NEUTROPHILS % 84.8 % (39.0-77.0); PLATELET COUNT 255 10^3/UL (140-415); POSITIVE DIFF @See below; RED BLOOD COUNT 3.81 10^6/ul (4.70-6.10); RED CELL DISTRIBUTION WIDTH 14.2 % (11.5-14.5)
[2017-06-14 05:46] LABS: ANION GAP 11 (8-16); BLOOD UREA NITROGEN 27 mg/dl (7-20); CALCIUM 7.9 mg/dl (8.4-10.2); CARBON DIOXIDE 36 mmol/L (21-31); CHLORIDE 101 mmol/L (97-110); CREATININE 0.81 mg/dl (0.61-1.24); GLUCOSE 118 mg/dl (70-220); POTASSIUM 3.8 mmol/L (3.5-5.1); SODIUM 144 mmol/L (135-144)
[2017-06-14] MEDS: TIOTROPIUM 18 MCG CAPSULE INHA DEV INH (08:43)
[2017-06-14] MEDS: DOCUSATE SODIUM 100 MG CAP PO (08:52)
[2017-06-14] MEDS: BICALUTAMIDE 50 MG TAB PO (08:52)
[2017-06-14] MEDS: FLUCONAZOLE 200 MG TAB PO (08:52)
[2017-06-14] MEDS: APIXABAN 5 MG TABLET PO ×2 (08:53→20:30)
[2017-06-14] MEDS: SALMETEROL/FLUTICASONE 500/50 INHA INH ×2 (08:54→20:29)
[2017-06-14] MEDS: METHYLPREDNISOLONE 40 MG INJ IV ×2 (08:55→20:29)
[2017-06-14] MEDS: SOD CHLORIDE 0.9% 500 ML IV (08:55)
[2017-06-14] MEDS: DILTIAZEM (CD) 240 MG CAP PO (08:59)
[2017-06-14] MEDS: ALBUTEROL/IPRATROPIUM (NEB) 3 ML AMP HHN ×4 (09:00→20:24)
[2017-06-14] MEDS: METHIMAZOLE 5 MG TAB PO (12:16)
[2017-06-14] MEDS: METOPROLOL 25 MG TAB PO ×2 (12:16→20:29)
[2017-06-14] MEDS: LEVOFLOXACIN 750MG/D5W (PMX) 150 ML IVPB (12:17)
[2017-06-14] MEDS: FISH OIL 1,000 MG CAP PO (13:33)
[2017-06-14] MEDS: SENNA TAB PO (20:29)
[2017-06-14] MEDS: [UNRECOGNIZED DRUG - OTHER] BOTH EYES (20:29)
[2017-06-14] MEDS: MONTELUKAST 10 MG TAB PO (20:29)
[2017-06-14] MEDS: BIMATOPROST BOTH EYES (20:29)
[2017-06-14] MEDS: LATANOPROST 0.005% 2.5 ML OPH BOTH EYES (20:30)
[2017-06-15] MEDS: ALBUTEROL/IPRATROPIUM (NEB) 3 ML AMP HHN ×6 (00:29→20:13)
[2017-06-15] MEDS: LACTATED RINGER'S 1,000 ML IV ×2 (03:04→14:53)
[2017-06-15 06:17] LABS: ADD MAN DIFF? NO
[2017-06-15 06:20] LABS: WHITE BLOOD COUNT 19.5 10^3/ul (4.8-10.8)
[2017-06-15 06:20] LABS: ABNORMAL IP MESSAGE 1; BASOPHILS % 0.2 % (0.0-2.0); HEMATOCRIT 34.5 % (42.0-52.0); HEMOGLOBIN 11.3 g/dl (14.0-18.0); LYMPHOCYTES # 0.7 10^3/ul (0.8-2.9); LYMPHOCYTES % 3.3 % (15.0-51.0); MEAN CORPUSCULAR HEMOGLOBIN 29.8 pg (29.0-33.0); MEAN CORPUSCULAR HGB CONC 32.8 g/dl (32.0-37.0); MEAN PLATELET VOLUME 9.7 fl (7.4-10.4); MONOCYTE # 0.6 10^3/ul (0.3-0.9); MONOCYTES % 3.2 % (0.0-11.0); NEUTROPHIL # 16.9 10^3/ul (1.6-7.5); NEUTROPHILS % 86.3 % (39.0-77.0); PLATELET COUNT 235 10^3/UL (140-415); POSITIVE DIFF @See below; RED BLOOD COUNT 3.79 10^6/ul (4.70-6.10); RED CELL DISTRIBUTION WIDTH 14.4 % (11.5-14.5)
[2017-06-15 06:37] LABS: LACTIC ACID 2.5 mmol/L (0.5-2.0)
[2017-06-15 06:47] LABS: ANION GAP 12 (8-16); BLOOD UREA NITROGEN 24 mg/dl (7-20); CARBON DIOXIDE 36 mmol/L (21-31); CHLORIDE 99 mmol/L (97-110); CREATININE 0.87 mg/dl (0.61-1.24); GLUCOSE 117 mg/dl (70-220); POTASSIUM 4.1 mmol/L (3.5-5.1); SODIUM 143 mmol/L (135-144)
[2017-06-15 07:00] LABS: CHOLESTEROL 118 mg/dl (100-200)
[2017-06-15 07:00] LABS: CHOL/HDL RATIO 1.7 RATIO; HDL CHOLESTEROL 67 mg/dl (31-75); LDL CHOLESTEROL,CALCULATED 41 mg/dl; TRIGLYCERIDES 49 mg/dl (0-149)
[2017-06-15] MEDS: SALMETEROL/FLUTICASONE 500/50 INHA INH ×2 (08:38→20:46)
[2017-06-15] MEDS: TIOTROPIUM 18 MCG CAPSULE INHA DEV INH (08:39)
[2017-06-15] MEDS: METHIMAZOLE 5 MG TAB PO (08:41)
[2017-06-15] MEDS: FLUCONAZOLE 200 MG TAB PO (08:41)
[2017-06-15] MEDS: METOPROLOL 25 MG TAB PO ×2 (08:42→20:46)
[2017-06-15] MEDS: APIXABAN 5 MG TABLET PO ×2 (08:43→20:46)
[2017-06-15] MEDS: BICALUTAMIDE 50 MG TAB PO (08:43)
[2017-06-15] MEDS: DOCUSATE SODIUM 100 MG CAP PO (08:44)
[2017-06-15] MEDS: DILTIAZEM (CD) 240 MG CAP PO (08:49)
[2017-06-15] MEDS: predniSONE 20 MG TAB PO (08:55)
[2017-06-15] MEDS: LEVOFLOXACIN 750MG/D5W (PMX) 150 ML IVPB (08:58)
[2017-06-15] MEDS: AZITHROMYCIN 250 MG TAB PO (10:54)
[2017-06-15] MEDS: SENNA TAB PO (20:46)
[2017-06-15] MEDS: LATANOPROST 0.005% 2.5 ML OPH BOTH EYES (20:46)
[2017-06-15] MEDS: MONTELUKAST 10 MG TAB PO (20:46)
[2017-06-15] MEDS: [UNRECOGNIZED DRUG - OTHER] BOTH EYES (20:50)
[2017-06-15] MEDS: BIMATOPROST BOTH EYES (20:50)
[2017-06-16] MEDS: ALBUTEROL/IPRATROPIUM (NEB) 3 ML AMP HHN ×6 (00:51→20:01)
[2017-06-16] MEDS: LACTATED RINGER'S 1,000 ML IV ×2 (03:45→18:09)
[2017-06-16] MEDS: SALMETEROL/FLUTICASONE 500/50 INHA INH ×2 (08:52→20:10)
[2017-06-16] MEDS: TIOTROPIUM 18 MCG CAPSULE INHA DEV INH (08:52)
[2017-06-16] MEDS: DOCUSATE SODIUM 100 MG CAP PO (08:53)
[2017-06-16] MEDS: APIXABAN 5 MG TABLET PO ×2 (08:53→20:10)
[2017-06-16] MEDS: predniSONE 20 MG TAB PO (08:53)
[2017-06-16] MEDS: METOPROLOL 25 MG TAB PO ×2 (08:53→20:10)
[2017-06-16] MEDS: FLUCONAZOLE 200 MG TAB PO (08:53)
[2017-06-16] MEDS: BICALUTAMIDE 50 MG TAB PO (08:54)
[2017-06-16] MEDS: DILTIAZEM (CD) 240 MG CAP PO (08:55)
[2017-06-16] MEDS: METHIMAZOLE 5 MG TAB PO (08:55)
[2017-06-16] MEDS: LEVOFLOXACIN 750MG/D5W (PMX) 150 ML IVPB (09:01)
[2017-06-16] MEDS: MONTELUKAST 10 MG TAB PO (20:10)
[2017-06-16] MEDS: SENNA TAB PO (20:10)
[2017-06-16] MEDS: LATANOPROST 0.005% 2.5 ML OPH BOTH EYES (20:11)
[2017-06-16] MEDS: BIMATOPROST BOTH EYES (20:12)
[2017-06-16] MEDS: [UNRECOGNIZED DRUG - OTHER] BOTH EYES (20:12)
[2017-06-16] MEDS: ACETAMINOPHEN 325 MG TAB PO (22:28)
[2017-06-17] MEDS: ALBUTEROL/IPRATROPIUM (NEB) 3 ML AMP HHN ×6 (00:49→21:56)
[2017-06-17] MEDS: LACTATED RINGER'S 1,000 ML IV ×3 (04:00→16:29)
[2017-06-17] MEDS: TIOTROPIUM 18 MCG CAPSULE INHA DEV INH (09:05)
[2017-06-17] MEDS: SALMETEROL/FLUTICASONE 500/50 INHA INH ×2 (09:05→21:36)
[2017-06-17] MEDS: APIXABAN 5 MG TABLET PO ×2 (09:05→21:36)
[2017-06-17] MEDS: METHIMAZOLE 5 MG TAB PO (09:06)
[2017-06-17] MEDS: BICALUTAMIDE 50 MG TAB PO (09:06)
[2017-06-17] MEDS: METOPROLOL 25 MG TAB PO ×2 (09:07→21:37)
[2017-06-17] MEDS: predniSONE 20 MG TAB PO (09:07)
[2017-06-17] MEDS: DOCUSATE SODIUM 100 MG CAP PO (09:07)
[2017-06-17] MEDS: FLUCONAZOLE 200 MG TAB PO (09:08)
[2017-06-17] MEDS: DILTIAZEM (CD) 240 MG CAP PO (09:08)
[2017-06-17] MEDS: LEVOFLOXACIN 750MG/D5W (PMX) 150 ML IVPB (09:08)
[2017-06-17] MEDS: LEVOFLOXACIN 500 MG TAB PO (13:26)
[2017-06-17 18:43] LABS: ADD MAN DIFF? NO
[2017-06-17 18:47] LABS: ABNORMAL IP MESSAGE 1; BASOPHIL # 0.1 10^3/ul (0.0-0.1); BASOPHILS % 0.3 % (0.0-2.0); HEMOGLOBIN 12.6 g/dl (14.0-18.0); LYMPHOCYTES # 0.6 10^3/ul (0.8-2.9); LYMPHOCYTES % 2.5 % (15.0-51.0); MEAN CORPUSCULAR HEMOGLOBIN 29.7 pg (29.0-33.0); MEAN CORPUSCULAR HGB CONC 32.3 g/dl (32.0-37.0); MEAN PLATELET VOLUME 9.5 fl (7.4-10.4); MONOCYTE # 0.7 10^3/ul (0.3-0.9); MONOCYTES % 3.1 % (0.0-11.0); NEUTROPHIL # 20.7 10^3/ul (1.6-7.5); NEUTROPHILS % 90.1 % (39.0-77.0); PLATELET COUNT 204 10^3/UL (140-415); POSITIVE DIFF @See below; RED BLOOD COUNT 4.24 10^6/ul (4.70-6.10); RED CELL DISTRIBUTION WIDTH 14.9 % (11.5-14.5)
[2017-06-17 19:01] LABS: ANION GAP 15 (8-16); BLOOD UREA NITROGEN 24 mg/dl (7-20); CALCIUM 8.7 mg/dl (8.4-10.2); CARBON DIOXIDE 35 mmol/L (21-31); CHLORIDE 98 mmol/L (97-110); CREATININE 1.11 mg/dl (0.61-1.24); GLUCOSE 126 mg/dl (70-220); POTASSIUM 4.5 mmol/L (3.5-5.1); SODIUM 143 mmol/L (135-144)
[2017-06-17 19:22] LABS: LACTIC ACID 3.9 mmol/L (0.5-2.0)
[2017-06-17] MEDS: LATANOPROST 0.005% 2.5 ML OPH BOTH EYES (21:00)
[2017-06-17] MEDS: [UNRECOGNIZED DRUG - OTHER] BOTH EYES (21:36)
[2017-06-17] MEDS: SENNA TAB PO (21:36)
[2017-06-17] MEDS: BIMATOPROST BOTH EYES (21:36)
[2017-06-17] MEDS: MONTELUKAST 10 MG TAB PO (21:39)
[2017-06-18] MEDS: ALBUTEROL/IPRATROPIUM (NEB) 3 ML AMP HHN ×5 (02:41→16:56)
[2017-06-18] MEDS: LEVOFLOXACIN 500 MG TAB PO (05:49)
[2017-06-18] MEDS: METOPROLOL 25 MG TAB PO (08:36)
[2017-06-18] MEDS: FLUCONAZOLE 200 MG TAB PO (08:37)
[2017-06-18] MEDS: DILTIAZEM (CD) 240 MG CAP PO (08:37)
[2017-06-18] MEDS: APIXABAN 5 MG TABLET PO (08:37)
[2017-06-18] MEDS: BICALUTAMIDE 50 MG TAB PO (08:39)
[2017-06-18] MEDS: TIOTROPIUM 18 MCG CAPSULE INHA DEV INH (08:39)
[2017-06-18] MEDS: predniSONE 20 MG TAB PO (08:39)
[2017-06-18] MEDS: DOCUSATE SODIUM 100 MG CAP PO (08:40)
[2017-06-18] MEDS: SALMETEROL/FLUTICASONE 500/50 INHA INH (08:40)
[2017-06-18] MEDS: METHIMAZOLE 5 MG TAB PO (08:40)
[2017-06-21 12:48] LABS: PROCALCITONIN <0.10 ng/mL (<0.10)
== END 2017-06-18 18:40 | disposition home or self-care (01) | DRG 871 ==
LOC: MS4 06-14 18:20 → MS3 18:32 → E/R 14:01
PROC: 5A09357 Assistance with Respiratory Ventilation, Less than 24 Consecutive Hours, Continuous Positive Airway Pressure (ICD-10-PCS; principal; 2017-06-08)
DX: A41.9 Sepsis, unspecified organism (principal); J18.9 Pneumonia, unspecified organism; J44.1 Chronic obstructive pulmonary disease with (acute) exacerbation; I47.1 Supraventricular tachycardia; C79.51 Secondary malignant neoplasm of bone; E87.2 Acidosis; J44.0 Chronic obstructive pulmonary disease with (acute) lower respiratory infection; I48.0 Paroxysmal atrial fibrillation; E21.3 Hyperparathyroidism, unspecified; I10 Essential (primary) hypertension; E78.5 Hyperlipidemia, unspecified; D72.828 Other elevated white blood cell count; Z79.52 Long term (current) use of systemic steroids; Z79.02 Long term (current) use of antithrombotics/antiplatelets; Z85.46 Personal history of malignant neoplasm of prostate; Z87.891 Personal history of nicotine dependence; Z99.81 Dependence on supplemental oxygen
CPT/HCPCS: 36600; 71045; 80048; 80053; 80061; 80202; 81003; 82550; 82553; 82803; 83605; 83735; 83880; 84100; 84145; 84436; 84439; 84443; 84484; 85025; 85610; 85651; 85730; 87040; 87070; 90686; 93005; 93306; 94640; 94644; 94660; 96374; 96375; 97161; 99291-25

== ENCOUNTER 2018-08-09 09:35 | Inpatient (IN) | payer MEDICARE, OTHER ==
[2018-08-09] MEDS ORDERED: ACETAMINOPHEN 325 MG TAB PO (10:00)
[2018-08-09 10:10] LABS: ADD MAN DIFF? NO
[2018-08-09 10:18] LABS: WHITE BLOOD COUNT 14.7 10^3/ul (4.8-10.8)
[2018-08-09 10:18] LABS: BASOPHILS % 0.3 % (0.0-2.0); EOSINOPHILS # 0.1 10^3/ul (0.0-0.5); EOSINOPHILS % 0.7 % (0.0-7.0); HEMOGLOBIN 11.3 g/dl (14.0-18.0); LYMPHOCYTES # 1.2 10^3/ul (0.8-2.9); LYMPHOCYTES % 8.4 % (15.0-51.0); MEAN CORPUSCULAR HEMOGLOBIN 28.2 pg (29.0-33.0); MEAN CORPUSCULAR HGB CONC 30.5 g/dl (32.0-37.0); MEAN CORPUSCULAR VOLUME 92.3 fl (82.0-101.0); MEAN PLATELET VOLUME 9.3 fl (7.4-10.4); MONOCYTE # 1.3 10^3/ul (0.3-0.9); MONOCYTES % 8.9 % (0.0-11.0); NEUTROPHILS % 81.2 % (39.0-77.0); PLATELET COUNT 366 10^3/UL (140-415); RED BLOOD COUNT 4.01 10^6/ul (4.70-6.10); RED CELL DISTRIBUTION WIDTH 13.1 % (11.5-14.5)
[2018-08-09] MEDS: CEFEPIME 2GM/50 ML (PMX) 50 ML IVPB ×2 (10:21→20:57)
[2018-08-09] MEDS: ONDANSETRON 4 MG INJ IV (10:21)
[2018-08-09 10:30] LABS: ALANINE AMINOTRANSFERASE 19 IU/L (13-69); ALBUMIN/GLOBULIN RATIO 1.17; ALKALINE PHOSPHATASE 67 IU/L (42-121); ANION GAP 8 (5-13); ASPARTATE AMINO TRANSFERASE 16 IU/L (15-46); BILIRUBIN,INDIRECT 0.7 mg/dl (0-1.1); BILIRUBIN,TOTAL 0.7 mg/dl (0.2-1.3); BLOOD UREA NITROGEN 17 mg/dl (7-20); CALCIUM 8.9 mg/dl (8.4-10.2); CHLORIDE 101 mmol/L (97-110); CREATININE 1.11 mg/dl (0.61-1.24); GLUCOSE 102 mg/dl (70-220); POTASSIUM 3.8 mmol/L (3.5-5.1); SODIUM 140 mmol/L (135-144); TOTAL PROTEIN 7.4 g/dl (6.1-8.1)
[2018-08-09 10:32] LABS: INR 1.12; PROTIME 14.5 Sec (11.9-14.9); PT RATIO 1.1
[2018-08-09 10:33] LABS: PARTIAL THROMBOPLASTIN TIME 35.1 Sec (23.0-35.0)
[2018-08-09 10:37] LABS: CARBON DIOXIDE 31 mmol/L (21-31)
[2018-08-09 10:42] LABS: TROPONIN-I < 0.012 ng/ml (0.000-0.120)
[2018-08-09] MEDS: VANCOMYCIN 1 GM (PMX) 250 ML IVPB (11:13)
[2018-08-09 12:35] LABS: ADD UMIC YES; UR ASCORBIC ACID NEGATIVE (NEGATIVE); UR BILIRUBIN (Dip) NEGATIVE (NEGATIVE); UR BLOOD (Dip) NEGATIVE (NEGATIVE); UR CLARITY SLIGHTLY CLOUDY (CLEAR); UR COLOR YELLOW (YELLOW); UR GLUCOSE (Dip) NEGATIVE (NEGATIVE); UR KETONES (Dip) NEGATIVE (NEGATIVE); UR LEUKOCYTE ESTERASE (Dip) NEGATIVE Leu/ul (NEGATIVE); UR MUCUS MODERATE /HPF (NONE SEEN); UR NITRITE (Dip) NEGATIVE (NEGATIVE); UR RBC 2 /HPF (0-5); UR TOTAL PROTEIN (Dip) 1+ mg/dl (NEGATIVE); UR UROBILINOGEN (Dip) 2+ mg/dL (NEGATIVE); UR WBC 4 /HPF (0-5)
[2018-08-09] MEDS ORDERED: NACL 0.9% 3 ML SYG IV (13:00)
[2018-08-09] MEDS ORDERED: VANCOMYCIN IV PER PHARMACY XX (13:00)
[2018-08-09 13:11] LABS: HEMOGLOBIN A1C 5.2 % (0-5.9)
[2018-08-09 13:14] LABS: LACTIC ACID 1.3 mmol/L (0.5-2.0)
[2018-08-09 13:23] LABS: FREE T4 (FREE THYROXINE) 1.03 ng/dl (0.78-2.44)
[2018-08-09 13:42] LABS: PROCALCITONIN 0.06 ng/mL (0.00-0.10)
[2018-08-09] MEDS: METHIMAZOLE 5 MG TAB PO ×2 (14:30→21:00)
[2018-08-09 14:37] LABS: LACTIC ACID 1.3 mmol/L (0.5-2.0)
[2018-08-09] MEDS ORDERED: ALBUTEROL/IPRATROPIUM (NEB) 3 ML AMP HHN (16:00)
[2018-08-09] MEDS: VANCOMYCIN 750 MG (PMX) 250 ML IVPB (16:01)
[2018-08-09] MEDS: DORZOLAMIDE 2% 10 ML OPH BOTH EYES ×2 (16:01→21:00)
[2018-08-09] MEDS: ARFORMOTEROL TARTRATE 15MCG/2 ML AMP NEB (20:16)
[2018-08-09] MEDS: ALBUTEROL/IPRATROPIUM (NEB) 3 ML AMP HHN (20:16)
[2018-08-09] MEDS: APIXABAN 5 MG TABLET PO (20:55)
[2018-08-09] MEDS: LATANOPROST 0.005% 2.5 ML OPH BOTH EYES (21:00)
[2018-08-09] MEDS ORDERED: BIMATOPROST 0.01% 2.5 ML BTL BOTH EYES (21:00)
[2018-08-10] MEDS: HYDROCODONE/APAP (5/325) TAB PO (02:24)
[2018-08-10 05:14] LABS: ADD MAN DIFF? NO
[2018-08-10 05:23] LABS: WHITE BLOOD COUNT 11.8 10^3/ul (4.8-10.8)
[2018-08-10 05:23] LABS: BASOPHILS % 0.3 % (0.0-2.0); EOSINOPHILS # 0.1 10^3/ul (0.0-0.5); EOSINOPHILS % 1.1 % (0.0-7.0); HEMOGLOBIN 10.2 g/dl (14.0-18.0); LYMPHOCYTES # 1.2 10^3/ul (0.8-2.9); MEAN CORPUSCULAR HEMOGLOBIN 28.4 pg (29.0-33.0); MEAN CORPUSCULAR HGB CONC 30.9 g/dl (32.0-37.0); MEAN CORPUSCULAR VOLUME 91.9 fl (82.0-101.0); MEAN PLATELET VOLUME 9.3 fl (7.4-10.4); MONOCYTES % 8.7 % (0.0-11.0); NEUTROPHIL # 9.4 10^3/ul (1.6-7.5); NEUTROPHILS % 79.4 % (39.0-77.0); PLATELET COUNT 297 10^3/UL (140-415); RED BLOOD COUNT 3.59 10^6/ul (4.70-6.10); RED CELL DISTRIBUTION WIDTH 13.2 % (11.5-14.5)
[2018-08-10 05:57] LABS: CHOL/HDL RATIO 2.2 RATIO; CHOLESTEROL 121 mg/dl (100-200); HDL CHOLESTEROL 55 mg/dl (31-75); LDL CHOLESTEROL,CALCULATED 54 mg/dl; MAGNESIUM 2.3 mg/dl (1.7-2.5); TRIGLYCERIDES 62 mg/dl (0-149)
[2018-08-10 05:57] LABS: PHOSPHORUS 2.9 mg/dl (2.5-4.9)
[2018-08-10 06:34] LABS: ALANINE AMINOTRANSFERASE 16 IU/L (13-69); ALBUMIN 3.4 g/dl (3.3-4.9); ALBUMIN/GLOBULIN RATIO 1.21; ALKALINE PHOSPHATASE 53 IU/L (42-121); ANION GAP 6 (5-13); ASPARTATE AMINO TRANSFERASE 20 IU/L (15-46); BILIRUBIN,INDIRECT 0.5 mg/dl (0-1.1); BILIRUBIN,TOTAL 0.5 mg/dl (0.2-1.3); BLOOD UREA NITROGEN 16 mg/dl (7-20); CALCIUM 8.4 mg/dl (8.4-10.2); CARBON DIOXIDE 31 mmol/L (21-31); CHLORIDE 106 mmol/L (97-110); CREATININE 0.94 mg/dl (0.61-1.24); GLUCOSE 100 mg/dl (70-220); POTASSIUM 3.9 mmol/L (3.5-5.1); SODIUM 143 mmol/L (135-144); TOTAL PROTEIN 6.2 g/dl (6.1-8.1)
[2018-08-10] MEDS: ACETAMINOPHEN 325 MG TAB PO ×2 (07:38→21:54)
[2018-08-10] MEDS: ARFORMOTEROL TARTRATE 15MCG/2 ML AMP NEB ×2 (08:48→21:12)
[2018-08-10] MEDS: ALBUTEROL/IPRATROPIUM (NEB) 3 ML AMP HHN ×3 (08:48→19:51)
[2018-08-10] MEDS: NACL 3% FOR INHALATION 15 ML NEBU NEB (08:48)
[2018-08-10] MEDS: CEFEPIME 2GM/50 ML (PMX) 50 ML IVPB (09:13)
[2018-08-10] MEDS: DORZOLAMIDE 2% 10 ML OPH BOTH EYES ×3 (09:13→21:53)
[2018-08-10] MEDS: CYANOCOBALAMIN 100 MCG TAB PO (09:14)
[2018-08-10] MEDS: APIXABAN 5 MG TABLET PO ×2 (09:14→21:54)
[2018-08-10] MEDS: METHIMAZOLE 5 MG TAB PO ×3 (09:14→21:00)
[2018-08-10] MEDS: BICALUTAMIDE 50 MG TAB PO (09:19)
[2018-08-10] MEDS ORDERED: BISACODYL (EC) 5 MG TAB PO (12:30)
[2018-08-10] MEDS: ELLIPTA INH (13:52)
[2018-08-10] MEDS: TRELEGY INH (13:52)
[2018-08-10] MEDS ORDERED: KETOROLAC 30 MG INJ IV (15:00)
[2018-08-10] MEDS: AMPICILLIN/SULB 1.5GM/NS (PMX) 50 ML IVPB ×2 (15:36→21:58)
[2018-08-10] MEDS ORDERED: VANCOMYCIN HCL 1.5 GM in SOD CHLORIDE 0.9% 250 ML IVPB (16:00)
[2018-08-10] MEDS: DILTIAZEM (CD) 120 MG CAP PO (17:07)
[2018-08-10] MEDS: predniSONE 10 MG TAB PO (17:07)
[2018-08-10] MEDS: POLYETHYLENE GLYCOL 17 GM PACKET PO (21:00)
[2018-08-10] MEDS: ONDANSETRON 4 MG INJ IV (21:51)
[2018-08-10] MEDS: FLECAINIDE 100 MG TAB PO (21:56)
[2018-08-10] MEDS: LATANOPROST 0.005% 2.5 ML OPH BOTH EYES (21:56)
[2018-08-11] MEDS: AMPICILLIN/SULB 1.5GM/NS (PMX) 50 ML IVPB ×3 (05:20→21:41)
[2018-08-11 05:56] LABS: ADD MAN DIFF? NO
[2018-08-11 06:12] LABS: BASOPHILS % 0.2 % (0.0-2.0); EOSINOPHILS # 0.1 10^3/ul (0.0-0.5); EOSINOPHILS % 0.7 % (0.0-7.0); HEMATOCRIT 33.5 % (42.0-52.0); HEMOGLOBIN 10.2 g/dl (14.0-18.0); LYMPHOCYTES % 9.6 % (15.0-51.0); MEAN CORPUSCULAR HEMOGLOBIN 28.1 pg (29.0-33.0); MEAN CORPUSCULAR HGB CONC 30.4 g/dl (32.0-37.0); MEAN CORPUSCULAR VOLUME 92.3 fl (82.0-101.0); MEAN PLATELET VOLUME 9.5 fl (7.4-10.4); MONOCYTE # 0.7 10^3/ul (0.3-0.9); MONOCYTES % 7.1 % (0.0-11.0); NEUTROPHIL # 8.4 10^3/ul (1.6-7.5); NEUTROPHILS % 81.9 % (39.0-77.0); PLATELET COUNT 321 10^3/UL (140-415); RED BLOOD COUNT 3.63 10^6/ul (4.70-6.10); RED CELL DISTRIBUTION WIDTH 13.1 % (11.5-14.5)
[2018-08-11 06:12] LABS: WHITE BLOOD COUNT 10.3 10^3/ul (4.8-10.8)
[2018-08-11 06:52] LABS: ANION GAP 6 (5-13); BLOOD UREA NITROGEN 11 mg/dl (7-20); CALCIUM 8.5 mg/dl (8.4-10.2); CARBON DIOXIDE 34 mmol/L (21-31); CHLORIDE 104 mmol/L (97-110); CREATININE 0.89 mg/dl (0.61-1.24); GLUCOSE 99 mg/dl (70-220); POTASSIUM 3.8 mmol/L (3.5-5.1); SODIUM 144 mmol/L (135-144)
[2018-08-11 06:58] LABS: MAGNESIUM 2.3 mg/dl (1.7-2.5)
[2018-08-11 06:58] LABS: PHOSPHORUS 3.6 mg/dl (2.5-4.9)
[2018-08-11] MEDS: ALBUTEROL/IPRATROPIUM (NEB) 3 ML AMP HHN ×3 (07:57→20:35)
[2018-08-11] MEDS: ARFORMOTEROL TARTRATE 15MCG/2 ML AMP NEB ×2 (07:57→20:39)
[2018-08-11] MEDS: TRELEGY INH (09:38)
[2018-08-11] MEDS: ELLIPTA INH (09:38)
[2018-08-11] MEDS: POLYETHYLENE GLYCOL 17 GM PACKET PO ×2 (09:41→21:48)
[2018-08-11] MEDS: DILTIAZEM (CD) 120 MG CAP PO (09:41)
[2018-08-11] MEDS: APIXABAN 5 MG TABLET PO ×2 (09:41→21:41)
[2018-08-11] MEDS: FLECAINIDE 100 MG TAB PO ×2 (09:41→21:40)
[2018-08-11] MEDS: METHIMAZOLE 5 MG TAB PO ×3 (09:42→21:40)
[2018-08-11] MEDS: CYANOCOBALAMIN 100 MCG TAB PO (09:42)
[2018-08-11] MEDS: predniSONE 10 MG TAB PO (09:42)
[2018-08-11] MEDS: BICALUTAMIDE 50 MG TAB PO (09:43)
[2018-08-11] MEDS: DORZOLAMIDE 2% 10 ML OPH BOTH EYES ×3 (09:44→21:41)
[2018-08-11] MEDS: MUPIROCIN 2% 22 GM OINT TOP ×2 (15:51→21:42)
[2018-08-11] MEDS: LATANOPROST 0.005% 2.5 ML OPH BOTH EYES (21:41)
[2018-08-11] MEDS: ACETAMINOPHEN 325 MG TAB PO (21:48)
[2018-08-12] MEDS: AMPICILLIN/SULB 1.5GM/NS (PMX) 50 ML IVPB ×2 (05:44→13:32)
[2018-08-12 05:48] LABS: ADD MAN DIFF? NO
[2018-08-12 05:56] LABS: WHITE BLOOD COUNT 10.3 10^3/ul (4.8-10.8)
[2018-08-12 05:56] LABS: BASOPHILS % 0.4 % (0.0-2.0); EOSINOPHILS # 0.2 10^3/ul (0.0-0.5); EOSINOPHILS % 1.6 % (0.0-7.0); HEMATOCRIT 33.2 % (42.0-52.0); HEMOGLOBIN 10.1 g/dl (14.0-18.0); LYMPHOCYTES # 1.5 10^3/ul (0.8-2.9); LYMPHOCYTES % 14.5 % (15.0-51.0); MEAN CORPUSCULAR HEMOGLOBIN 28.5 pg (29.0-33.0); MEAN CORPUSCULAR HGB CONC 30.4 g/dl (32.0-37.0); MEAN CORPUSCULAR VOLUME 93.5 fl (82.0-101.0); MEAN PLATELET VOLUME 9.2 fl (7.4-10.4); MONOCYTE # 0.8 10^3/ul (0.3-0.9); MONOCYTES % 7.5 % (0.0-11.0); NEUTROPHIL # 7.8 10^3/ul (1.6-7.5); NEUTROPHILS % 75.6 % (39.0-77.0); PLATELET COUNT 336 10^3/UL (140-415); RED BLOOD COUNT 3.55 10^6/ul (4.70-6.10)
[2018-08-12 06:32] LABS: ANION GAP 7 (5-13); BLOOD UREA NITROGEN 13 mg/dl (7-20); CALCIUM 8.7 mg/dl (8.4-10.2); CARBON DIOXIDE 34 mmol/L (21-31); CHLORIDE 103 mmol/L (97-110); CREATININE 1.03 mg/dl (0.61-1.24); GLUCOSE 89 mg/dl (70-220); POTASSIUM 3.9 mmol/L (3.5-5.1); SODIUM 144 mmol/L (135-144)
[2018-08-12] MEDS: ALBUTEROL/IPRATROPIUM (NEB) 3 ML AMP HHN ×2 (08:50→14:09)
[2018-08-12] MEDS: ARFORMOTEROL TARTRATE 15MCG/2 ML AMP NEB (08:51)
[2018-08-12] MEDS: POLYETHYLENE GLYCOL 17 GM PACKET PO (09:00)
[2018-08-12] MEDS: TRELEGY INH (09:25)
[2018-08-12] MEDS: ELLIPTA INH (09:25)
[2018-08-12] MEDS: CYANOCOBALAMIN 100 MCG TAB PO (09:26)
[2018-08-12] MEDS: DILTIAZEM (CD) 120 MG CAP PO (09:27)
[2018-08-12] MEDS: predniSONE 10 MG TAB PO (09:27)
[2018-08-12] MEDS: METHIMAZOLE 5 MG TAB PO ×2 (09:27→13:26)
[2018-08-12] MEDS: FLECAINIDE 100 MG TAB PO (09:28)
[2018-08-12] MEDS: DORZOLAMIDE 2% 10 ML OPH BOTH EYES ×2 (09:28→13:00)
[2018-08-12] MEDS: MUPIROCIN 2% 22 GM OINT TOP (09:29)
[2018-08-12] MEDS: BICALUTAMIDE 50 MG TAB PO (09:37)
[2018-08-12] MEDS: APIXABAN 5 MG TABLET PO (09:40)
[2018-08-12] MEDS: ACETAMINOPHEN 325 MG TAB PO (09:41)
== END 2018-08-12 19:15 | disposition home or self-care (01) | DRG 191 ==
LOC: E/R 09:35 → 2NE 10:00
DX: J43.2 Centrilobular emphysema (principal); J96.10 Chronic respiratory failure, unspecified whether with hypoxia or hypercapnia; Z99.81 Dependence on supplemental oxygen; E03.9 Hypothyroidism, unspecified; I48.0 Paroxysmal atrial fibrillation; I10 Essential (primary) hypertension; I27.20 Pulmonary hypertension, unspecified; C61 Malignant neoplasm of prostate; L08.9 Local infection of the skin and subcutaneous tissue, unspecified; J42 Unspecified chronic bronchitis
CPT/HCPCS: 36415; 71045; 71250; 80048; 80053; 80061; 81001; 83036; 83605; 83735; 84100; 84145; 84439; 84443; 84484; 85025; 85610; 85730; 87040-91; 87070; 87081; 87086; 89220; 93005; 94640; 94664; 99285-25